=== PATIENT | male | born 1955 | race Hispanic/Latino ===

== ENCOUNTER 2021-03-22 13:05 | Emergency (ER) | payer MEDICARE ==
[~2021-03-22] VITALS: Ht 172.7 cm; Wt 95.3 kg
[2021-03-22] MEDS ORDERED: TRAMADOL HCL 50 MG TABLET PO ONE (13:30)
[2021-03-22] MEDS ORDERED: SOLU-MEDROL 125MG VIAL IM ONE (13:30)
[2021-03-22] MEDS ORDERED: TRAM50TA4 PO (14:19)
[2021-03-22] MEDS ORDERED: PRED20TA3 PO (14:19)
[2021-03-22 14:53] VITALS: BP 147/82
== END 2021-03-22 14:53 | disposition home or self-care (01) ==
LOC: EDH 13:05
DX: M54.42 Lumbago with sciatica, left side (principal); Z88.0 Allergy status to penicillin; Z79.52 Long term (current) use of systemic steroids
CPT/HCPCS: 72131; 96372; 99284; J2930